=== PATIENT | female | born 1990 | race Caucasian/White ===

== ENCOUNTER 2016-07-30 22:56 | Emergency (ER) | payer MEDICAID ==
--- NOTE | ~2016-07-30 | ER ---
PATIENT'S NAME: TRICIA CARREON [facility] AGE: 26 Y [address] ROOM: [place] [address] LOCATION: [facility] ADMIT DATE: 07/30/2016 ER/Outpatient Report DISCHARGE DATE: 07/30/2016 FAMILY PHYSICIAN: Edwin Martinez MD ATTENDING PHYSICIAN: Kuldip Grimes Time of Arrival: 2316 hours. Time of Exam: 2320 hours. CHIEF COMPLAINT: Rash. HISTORY OF PRESENT ILLNESS: The patient states she had a rash that started on her legs approximately a week ago, was seen on Wednesday by Dr. Martinez, given a prescription for Vistaril tablets to take. She states she was reluctant to take one. Last time she had any was last night. She says the rash is spreading. It does itch. It is primarily up her legs, abdomen, and arms. ALLERGIES: SHE HAS NO KNOWN ALLERGIES. CURRENT MEDICATIONS: Vistaril that she started on Wednesday. PAST MEDICAL HISTORY: She is currently at 32 weeks. She is a 1, para 0. PAST SURGERIES: Include gallbladder. SOCIAL HISTORY: Smokes half pack per day and has for the last 10 years. 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 REVIEW OF SYSTEMS: She denies having any vaginal discharge. No cramping. Continues to have good movement of the baby. Does not feel as though she is having any problems with the at this time. Remainder of review of systems are negative. PHYSICAL EXAMINATION: VITAL SIGNS: Weight is 83.1 kg, blood pressure is 131/64, pulse of 120, respirations 16, temperature of 97.4, O2 saturation is 97% on room air. GENERAL: She is awake, alert, and oriented x4. PATIENT'S NAME: TRICIA CARREON [facility] AGE: 26 Y [address] ROOM: [place] [address] LOCATION: [facility] ADMIT DATE: 07/30/2016 ER/Outpatient Report DISCHARGE DATE: 07/30/2016 FAMILY PHYSICIAN: Edwin Martinez MD ATTENDING PHYSICIAN: Kuldip Grimes SKIN: [place], warm, and dry. LUNGS: Respirations are even and nonlabored. Lung sounds are clear. HEART: Regular rate and rhythm. The patient has a fine red rash of her legs, abdomen. Primarily, there are a few spots in her upper arms and on her mid back. She has been itching them. No drainage from any of the areas. IMPRESSION: Rash, possible bedbugs. PLAN: Prescription was written for permethrin cream. The patient is to apply it from the neck to her toes, leave it on tonight, wash it off in the morning. Continue doing the hydroxyzine for itching as ordered by Dr. Martinez and follow up with him if symptoms persist or worsen in the next 2-3 days. She can return to the ER if needed. She verbalized understanding. ANTONIO LIZARRAGA APRN FOR MD [place] MIRANDA/dionisio /[id number] d: 07/31/16 0202 t: 07/31/16 1825, OUTPATIENT REPORT
[~2016-07-30 22:56] MED LIST: TUMS200 MG PO
== END 2016-07-30 23:42 | disposition disaster alternative care site (69) ==
LOC: GMED 22:56
DX: O99.89 Other specified diseases and conditions complicating pregnancy, childbirth and the puerperium (principal); R21 Rash and other nonspecific skin eruption; O99.333 Smoking (tobacco) complicating pregnancy, third trimester; F17.210 Nicotine dependence, cigarettes, uncomplicated

== ENCOUNTER 2016-08-16 20:30 | Observation (INO) | payer MEDICAID ==
[~2016-08-16] VITALS: Ht 154.9 cm; Wt 82.0 kg
--- NOTE | ~2016-08-16 | HP ---
PATIENT'S NAME: TRICIA CARREON [facility] AGE: 26 Y [address] ROOM: [address] [address] LOCATION: [facility] ADMIT DATE: 08/16/2016 History & Physical DISCHARGE DATE: FAMILY PHYSICIAN: Edwin Martinez MD ATTENDING PHYSICIAN: Edwin Martinez DATE OF SERVICE: CHIEF COMPLAINT: Abdominal cramping. HISTORY OF PRESENT ILLNESS: The patient is a 26-year-old, primiparous at 35 weeks' gestation, the patient of Dr. Martinez, who came in to the hospital with complaints of lower abdominal cramping. She has had a history of some elevated liver function studies during this , but apparently GI felt it is more secondary to her nausea. She continues to have intermittent nausea and vomiting and does have lot of itching. She has not had serum bile acids checked at this point, but has had a hepatitis serology and ultrasound done as well. Her cervix was checked today and she was found to be of 3 cm, 90% effaced. PAST MEDICAL HISTORY: Significant Illnesses: None. MEDICATIONS: None. FAMILY HISTORY: She does have a history of malignant hyperthermia in brother and the patient's dad. Her EDC is 09/19/2016, so she is 35 weeks 1 day. REVIEW OF SYSTEMS: As per HPI, otherwise noncontributory. PHYSICAL EXAMINATION: GENERAL: The patient is nontoxic-appearing 26-year-old, no acute distress. HEENT: Head: Normocephalic and atraumatic. Ears: TMs are clear and intact bilaterally. Nose is patent. Throat is clear. NECK: Supple without lymphadenopathy, JVD, thyromegaly, or bruits. HEART: Regular rate and rhythm without audible murmur. LUNGS: Clear to auscultation bilaterally without wheezes, rhonchi, or rales. ABDOMEN: Soft, nontender, nondistended. Bowel sounds are positive. There is no hepatosplenomegaly. No guarding or rebound. EXTREMITIES: No clubbing, cyanosis, or edema. NEURO: No focal deficits. Cervix was 3 cm, 90% effaced, -3 station. Vertex PATIENT'S NAME: TRICIA CARREON [facility] AGE: 26 Y [address] [place] [facility] [place], [place] [address] LOCATION: [facility] ADMIT DATE: 08/16/2016 History & Physical DISCHARGE DATE: FAMILY PHYSICIAN: Edwin Martinez MD ATTENDING PHYSICIAN: Edwin Martinez presentation. ASSESSMENT AND PLAN: A 26-year-old, female who is a primiparous for 35 weeks 1 day gestation with a history of elevated liver function studies who now presents with labor. We will go ahead and give her some Brethine. She really was not [place] a lot more, just intermittently, but over the last 20-30 minutes, started picking up some more contractions, so we will go ahead and give her some Brethine and see if we can quiet that down. We will get a GBS culture, give her some IV fluid bolus, and some IV fluids as well. We will have him add some serum bile acids to her lab to make sure we are not looking at a cholestasis of . She does not think that has been done to this point. Certainly, the patient will continue to progress from a cervical standpoint. We will get Dr. Martinez involved. She voiced understanding of that plan as did her mom. YAHAIRA ELIZABETH MD TAB/modl /[id number] D: [id number] T: [id number] HISTORY & PHYSICAL
[2016-08-16 20:58] LABS: BLOOD URINE NEGATIVE /UL (NEGATIVE); COLOR URINE YELLOW (YELLOW); GLUCOSE URINE NEGATIVE (NEGATIVE); KETONE URINE NEGATIVE (NEGATIVE); LEUKOCYTES URINE 100 /UL (NEGATIVE); NITRITE URINE NEGATIVE (NEGATIVE); PROTEIN URINE 30 mg/dL (NEGATIVE); SPEC GRAVITY URINE 1.025 (1.003-1.035); TURBIDITY URINE 1+ (CLEAR); UROBILINOGEN URINE 8 mg/dL (NORMAL)
[2016-08-16 21:16] LABS: RBC URINE RARE #/HPF (NEGATIVE)
[2016-08-16] MEDS ORDERED: FLINTSTONES1 EAC1 (21:16)
[2016-08-16] MEDS ORDERED: FOLIC ACID1 MG PO (21:16)
[2016-08-16 21:17] LABS: AMORPHOUS URINE 2+ (NEGATIVE); BACTERIA URINE MANY (NEGATIVE); MUCUS URINE 2+ (NEGATIVE)
[2016-08-16 21:57] LABS: BLOOD URINE 10 /UL (NEGATIVE); COLOR URINE YELLOW (YELLOW); GLUCOSE URINE NEGATIVE (NEGATIVE); KETONE URINE 5 mg/dL (NEGATIVE); LEUKOCYTES URINE 25 /UL (NEGATIVE); NITRITE URINE NEGATIVE (NEGATIVE); PROTEIN URINE 30 mg/dL (NEGATIVE); TURBIDITY URINE CLEAR (CLEAR); UROBILINOGEN URINE 4 mg/dL (NORMAL)
[2016-08-16 22:03] LABS: BASOPHIL # 0.1 K/uL (0.0-0.2); BASOPHIL % 0.6 %; EOSINOPHIL # 0.3 K/uL (0.0-0.5); EOSINOPHIL % 2.1 %; HEMATOCRIT 31.1 % (33.0-46.0); HEMOGLOBIN 10.3 g/dL (11.0-15.0); IMMATURE GRANULOCYTE # 0.1 K/uL (0.0-0.3); IMMATURE GRANULOCYTE % 0.6 %; LYMPHOCYTE # 2.4 K/uL (0.8-4.0); LYMPHOCYTE % 17.3 %; MCH 28.9 pg (27.0-34.0); MCHC 33.1 gm/dL (32.0-36.5); MCV 87.1 fl (83.0-98.0); MONOCYTE # 0.8 K/uL (0.0-1.0); MPV 10.8 fl (9.4-12.4); NEUTROPHIL # (ANC) 10.1 K/uL (1.8-7.8); NEUTROPHIL % 73.4 %; NRBC % 0 /100WBC (0-0.00); RBC 3.57 M/uL (3.50-5.00); RDW-CV 13.5 % (11.9-14.6); WBC 13.8 K/uL (4.0-11.0)
[2016-08-16 22:05] LABS: PLATELET COUNT 458 K/uL (150-450)
[2016-08-16 22:09] LABS: WBC URINE 0-2 #/HPF (NEGATIVE)
[2016-08-16 22:10] LABS: BACTERIA URINE FEW (NEGATIVE); MUCUS URINE 3+ (NEGATIVE)
[2016-08-16 22:11] LABS: AMORPHOUS URINE 1+ (NEGATIVE)
[2016-08-16 22:18] LABS: ALBUMIN 2.1 gm/dL (3.5-5.0); ALK PHOS 387 IU/L (33-138); ALT 203 IU/L (12-78); ANION GAP 13.7 (10.0-19.0); AST 139 IU/L (10-40); BLOOD UREA NITROGEN 11 mg/dL (6-24); CALCIUM 8.8 mg/dL (8.5-10.5); CHLORIDE 106 mMol/L (96-110); CO2 21 mMol/L (22-32); CREATININE 0.5 mg/dL (0.5-1.1); ESTIMATED GFR (MDRD EQUATION) > 60; POTASSIUM 3.7 mMol/L (3.7-5.1); SODIUM 137 mMol/L (135-145); TOTAL PROTEIN 7.3 g/dL (6.0-8.4)
[2016-08-16 22:19] LABS: TOTAL BILIRUBIN 0.7 mg/dL (0.0-1.5)
[2016-08-17] MEDS ORDERED: PRENATAL 1+1)(P1 TAB PO (02:37)
[2016-08-17] MEDS ORDERED: BENADRYL25 MG PO (02:38)
[2016-08-17] MEDS ORDERED: HEALTHY HEART1 EACH PO (02:39)
[2016-08-17] MEDS ORDERED: VISTARIL25 M1 PO (02:44)
[2016-08-17 04:10] LABS: BASOPHIL % 0.2 %; EOSINOPHIL % 0.2 %; HEMATOCRIT 28.5 % (33.0-46.0); HEMOGLOBIN 9.7 g/dL (11.0-15.0); IMMATURE GRANULOCYTE # 0.1 K/uL (0.0-0.3); IMMATURE GRANULOCYTE % 0.8 %; LYMPHOCYTE # 1.1 K/uL (0.8-4.0); LYMPHOCYTE % 6.7 %; MCH 29.5 pg (27.0-34.0); MCV 86.6 fl (83.0-98.0); MONOCYTE # 0.2 K/uL (0.0-1.0); MONOCYTE % 1.3 %; MPV 10.5 fl (9.4-12.4); NEUTROPHIL # (ANC) 15.4 K/uL (1.8-7.8); NEUTROPHIL % 90.8 %; NRBC % 0 /100WBC (0-0.00); PLATELET COUNT 427 K/uL (150-450); RBC 3.29 M/uL (3.50-5.00); RDW-CV 13.7 % (11.9-14.6)
[2016-08-17 04:26] LABS: ALK PHOS 377 IU/L (33-138); ALT 196 IU/L (12-78); ANION GAP 15.8 (10.0-19.0); AST 138 IU/L (10-40); BLOOD UREA NITROGEN 9 mg/dL (6-24); CALCIUM 8.3 mg/dL (8.5-10.5); CHLORIDE 106 mMol/L (96-110); CO2 19 mMol/L (22-32); CREATININE 0.5 mg/dL (0.5-1.1); ESTIMATED GFR (MDRD EQUATION) > 60; POTASSIUM 3.8 mMol/L (3.7-5.1); SODIUM 137 mMol/L (135-145); TOTAL PROTEIN 6.8 g/dL (6.0-8.4)
[2016-08-17 04:28] LABS: TOTAL BILIRUBIN 0.9 mg/dL (0.0-1.5)
== END 2016-08-17 14:35 | disposition disaster alternative care site (69) ==
LOC: GOBS 20:30
PROVIDERS: Obstetrics & Gynecology Obstetrics; ADMIT Family Medicine
DX: O99.89 Other specified diseases and conditions complicating pregnancy, childbirth and the puerperium (principal); R10.9 Unspecified abdominal pain; Z3A.35 35 weeks gestation of pregnancy
CPT/HCPCS: G0378; G0463; J0702; J3105; J7120

== ENCOUNTER 2016-08-18 20:07 | Inpatient (IN) | payer MEDICAID ==
[~2016-08-18] VITALS: Ht 154.9 cm; Wt 84.0 kg
--- NOTE | ~2016-08-18 | OR ---
PATIENT'S NAME: TRICIA CARREON [facility] AGE: 26 Y [address] ROOM: [place] [address] LOCATION: [facility] ADMIT DATE: 08/18/2016 OR/Procedure Report DISCHARGE DATE: FAMILY PHYSICIAN: Edwin Martinez MD ATTENDING PHYSICIAN: Edwin Martinez SURGEON: Edwin Martinez MD PAINT TESTER: DATE OF PROCEDURE: 08/19/2016 PROCEDURE: Pitocin augmented vaginal delivery of a infant. PERFORMING PHYSICIAN: Edwin Martinez MD. ANESTHESIA: Epidural. ESTIMATED BLOOD LOSS: 250 mL. COMPLICATIONS: Thick meconium fluid and a nuchal cord x1. SPONGE AND NEEDLE COUNTS: Correct. NARRATIVE: Tricia Carreon is a 26-year-old, 1, para 0, now 1 female, who presents with the EDC by late ultrasound on 09/18/2016 making her currently 35 weeks and 5 days. She presented over the weekend with labor and actually progressed to around 3 cm and then stopped. She went home. She had gotten one dose of steroids. We were debating about whether to give the second, I thought she was far enough along and probably did not need to. The patient then presented the night prior to delivery and labor and at this time she progressed to 4 cm. She continued to proceed. The patient was at 6 cm and epidural was placed. heart tones looked good throughout. She then seemed to stall a little bit, so Pitocin was used to augment her labor. The patient progressed to complete and pushed the baby down extremely well. Right at complete, she did have spontaneous rupture of membranes. There was fairly thick meconium. Again, heart tones looked good throughout though. The patient pushed over a series of three contractions and delivered a viable male infant with score of 8 and 9 and delivered occiput anterior in nature. There was a nuchal cord x1 that was reduced. Anterior and posterior shoulders were delivered easily and the baby followed. Viable male infant, and was anatomically normal in nature. The cord was clamped and cut and baby was taken to the warmer since he was early at 35 weeks and 5 days and with the meconium. He did well, though he had spontaneous cry and really looked excellent. He was breathing well. Attention turned back to mom where arterial and then venous cord blood was obtained. Placenta was then delivered spontaneously and it was somewhat small meconium stained, it was sent to Pathology. The cervix was visualized and was intact, as were vaginal PATIENT'S NAME: TRICIA CARREON [facility] AGE: 26 Y [address] ROOM: [place] [address] LOCATION: [facility] ADMIT DATE: 08/18/2016 OR/Procedure Report DISCHARGE DATE: FAMILY PHYSICIAN: Edwin Martinez MD ATTENDING PHYSICIAN: Edwin Martinez [facility]. She had a small, about 2 cm, intraoral tear slightly to the right of midline. She also had a right and left labial tear lateral to her urethra. These were repaired with 3-0 Vicryl with running stitches. She tolerated that well. Sponge and needle counts were correct. Cervix was manipulated. Uterus palpated and it was nice and firm. A few clots were expressed. Mother was in good condition. Baby was taken to ICU for more precautionary reasons but was doing very well. Mom did get the baby for a while prior to taking him to the nursery. MD AMANDA FRANZ/modl /[id number] d: 08/19/162021 t: 09/05/16 1449, OPERATIVE SUMMARY
[~2016-08-18 20:07] MED LIST changes: +BENADRYL25 MG PO; +FLINTSTONES1 EAC1; +FOLIC ACID1 MG PO; +HEALTHY HEART1 EACH PO; +PRENATAL 1+1)(P1 TAB PO; +VISTARIL25 M1 PO
[2016-08-19 03:32] LABS: BASOPHIL # 0.1 K/uL (0.0-0.2); BASOPHIL % 0.4 %; EOSINOPHIL # 0.3 K/uL (0.0-0.5); EOSINOPHIL % 1.6 %; HEMATOCRIT 30.9 % (33.0-46.0); HEMOGLOBIN 10.1 g/dL (11.0-15.0); IMMATURE GRANULOCYTE # 0.1 K/uL (0.0-0.3); IMMATURE GRANULOCYTE % 0.6 %; LYMPHOCYTE # 2.4 K/uL (0.8-4.0); LYMPHOCYTE % 14.5 %; MCH 28.5 pg (27.0-34.0); MCHC 32.7 gm/dL (32.0-36.5); MCV 87.3 fl (83.0-98.0); MONOCYTE # 0.9 K/uL (0.0-1.0); MONOCYTE % 5.7 %; MPV 10.9 fl (9.4-12.4); NEUTROPHIL # (ANC) 12.7 K/uL (1.8-7.8); NEUTROPHIL % 77.2 %; NRBC % 0 /100WBC (0-0.00); PLATELET COUNT 465 K/uL (150-450); RBC 3.54 M/uL (3.50-5.00); RDW-CV 13.7 % (11.9-14.6)
[2016-08-19 03:35] LABS: WBC 16.4 K/uL (4.0-11.0)
[2016-08-19 14:56] LABS: PCO2 52 mmHg (35-45)
[2016-08-19 14:57] LABS: BICARBONATE 24.5 mmol/L (18.0-23.0); PO2 17 mmHg (80-90)
--- NOTE | 2016-08-20 04:48 | NUR ---
VSS. Fundus firm and midline. SL to right hand. Pt voiding well w/o difficulties. Tylenol at 2030 and Percocet at 0102.
[2016-08-20 04:56] LABS: BASOPHIL # 0.1 K/uL (0.0-0.2); BASOPHIL % 0.4 %; EOSINOPHIL # 0.3 K/uL (0.0-0.5); EOSINOPHIL % 1.7 %; HEMATOCRIT 29.6 % (33.0-46.0); HEMOGLOBIN 9.6 g/dL (11.0-15.0); IMMATURE GRANULOCYTE # 0.1 K/uL (0.0-0.3); IMMATURE GRANULOCYTE % 0.5 %; LYMPHOCYTE # 2.8 K/uL (0.8-4.0); LYMPHOCYTE % 14.2 %; MCH 29.3 pg (27.0-34.0); MCHC 32.4 gm/dL (32.0-36.5); MCV 90.2 fl (83.0-98.0); MONOCYTE # 1.1 K/uL (0.0-1.0); MONOCYTE % 5.5 %; MPV 10.9 fl (9.4-12.4); NEUTROPHIL # (ANC) 15.1 K/uL (1.8-7.8); NEUTROPHIL % 77.7 %; NRBC % 0.1 /100WBC (0-0.00); PLATELET COUNT 417 K/uL (150-450); RBC 3.28 M/uL (3.50-5.00); RDW-CV 13.8 % (11.9-14.6)
[2016-08-20 04:57] LABS: WBC 19.5 K/uL (4.0-11.0)
[2016-08-20 09:08] LABS: TOTAL PROTEIN 6.4 g/dL (6.0-8.4)
[2016-08-20 09:13] LABS: ALBUMIN 1.8 gm/dL (3.5-5.0); TOTAL BILIRUBIN 0.6 mg/dL (0.0-1.5)
--- NOTE | 2016-08-20 15:14 | NUR ---
Received a message from Juanita Kemp CM that patient made need assistance with locating or learning about community resources. I met with patient in the NICU as she was feeding Klaen. Introduced myself and explained my role with the CM department. Paulette states she has a play pen, car seat, clothes, and blankets for Kalen. She states she does not have any diapers or wipes or formula. She plans to breastfeed but states that she will need formula for baby if she is not successful with . She would also need bottles. I gave her the voucher to the [facility] and encouraged her to go there and grape picker some items for baby. I also gave her a list of community resources. She is not set up with [facility] yet, but I encouraged her to call [place] and get set up with them as they will be able to help her with formula. I also discussed signs and symptoms of post depression and left her reading material on the subject. FOB is not involved. She states she did contact the FOB and he knows that she had the baby, but she has not heard any more from him. WIll continue to follow and offer supports while baby is here in the NICU.
--- NOTE | 2016-08-21 04:42 | NUR ---
Last VS: T:98.5 P:97 R: 16 BP: 132/72 Pain ratin Last pain med: Percocet Medicated at: 0059 Effective: Yes Breasts: soft Nipples: intact Fundus: 1 FB below, firm, midline Lochia: Rubra, small amounts Epis/Perineum: Approximated, tender Voiding well: Yes Significant event: VSS. Up independently. Breast pumps. Baby in NICU.
[2016-08-21] MEDS ORDERED: PERCOCET 5-3251 EACH PO ×2 (17:26→17:27)
[2016-08-21] MEDS ORDERED: MOTRIN800 MG PO (17:26)
[2016-08-21] MEDS ORDERED: ACETAMINOPHEN325 MG PO (17:27)
[2016-08-21] MEDS ORDERED: DERMOPLAST SPRA56 GM TOP (17:28)
--- NOTE | 2016-08-21 17:50 | NUR ---
1750,08/21/16 C/O chills.temp taken. Pt. reports her sister has the flu. Pt. reports upset stomach. Had percocet earlier.
== END 2016-08-21 20:00 | disposition disaster alternative care site (69) | DRG 775 ==
LOC: GOBS 20:07
PROVIDERS: Obstetrics & Gynecology Obstetrics; ADMIT Family Medicine
PROC: 0HQ9XZZ Repair Perineum Skin, External Approach (ICD-10-PCS; principal; 2016-08-19)
PROC: 10E0XZZ Delivery of Products of Conception, External Approach (ICD-10-PCS; 2016-08-19)
DX: O60.14X0 Preterm labor third trimester with preterm delivery third trimester, not applicable or unspecified (principal); O77.0 Labor and delivery complicated by meconium in amniotic fluid; O69.81X0 Labor and delivery complicated by cord around neck, without compression, not applicable or unspecified; O70.0 First degree perineal laceration during delivery; Z3A.35 35 weeks gestation of pregnancy; Z37.0 Single live birth
CPT/HCPCS: G0378; G0463; J0702; J2590; J3010; J3105; J7120